=== PATIENT | male | born 1975 | race Caucasian/White ===

== ENCOUNTER 2019-12-09 20:42 | Inpatient (IN) | payer OTHER ==
[~2019-12-09] VITALS: Ht 167.6 cm; Wt 93.0 kg
[2019-12-09 23:12] LABS: BASOPHILS % 0.7 % (0.0-2.0); EOSINOPHILS % 1.1 % (0.0-5.0); HEMATOCRIT. 44.3 % (42.0-52.0); HEMOGLOBIN. 14.8 g/dL (14.0-18.0); LYMPHOCYTES % 31.3 % (20.0-50.0); MEAN CORPUSCULAR HEMOGLOBIN 29.5 pg (28.0-32.0); MEAN PLATELET VOLUME 8.1 fl (7.4-10.4); MONOCYTES % 5.9 % (2.0-8.0); PLATELET 256 x1000/uL (130-400); RED BLOOD CELL COUNT 5.03 mill/uL (4.7-6.1); RED CELL DISTRIBUTION WIDTH 14.4 % (11.6-14.6)
[2019-12-09] MEDS ORDERED: ASPIRIN 81MG TABLET PO ONE (23:15)
[2019-12-09 23:20] LABS: CHLORIDE 109 mEq/L (98-107)
[2019-12-10] MEDS ORDERED: MAGNESIUM/ALUMINUM HYDROXIDE/SIMETHICONE 30ML UDC PO PRN (07:00)
[2019-12-10] MEDS ORDERED: DIPHENHYDRAMINE 50MG/ML VIAL IV PRN (07:00)
[2019-12-10] MEDS ORDERED: GUAIFENESIN 200MG/10ML SUGAR FREE UDC PO PRN (07:00)
[2019-12-10] MEDS ORDERED: LORAZEPAM 2MG/ML CPJ IV PRN (07:00)
[2019-12-10] MEDS ORDERED: ACETAMINOPHEN 325MG TABLET PO PRN (07:00)
[2019-12-10] MEDS ORDERED: MORPHINE SULFATE 2 MG/ML CPJ (NOT FOR IM USE) IV PRN (07:00)
[2019-12-10] MEDS ORDERED: DOCUSATE SODIUM 100MG CAPSULE PO PRN (07:00)
[2019-12-10] MEDS ORDERED: CLONIDINE 0.1MG TABLET PO PRN (07:00)
[2019-12-10] MEDS ORDERED: ONDANSETRON HCL 4MG/2ML INJ IV PRN (07:00)
[2019-12-10] MEDS ORDERED: HYDROCODONE/ACETAMINOPHEN 10/325MG TABLET PO PRN (07:00)
[2019-12-10] MEDS ORDERED: HYDRALAZINE 20MG/ML VIAL IV PRN (07:00)
[2019-12-10] MEDS: ASPIRIN 81MG EC TABLET PO SCH (08:10)
[2019-12-10] MEDS: ENOXAPARIN 30MG/0.3ML SYR SUBCUT SCH ×2 (08:10→22:05)
[2019-12-10 10:46] LABS: T4 FREE 0.93 ng/dL (0.76-1.46)
[2019-12-10] MEDS: SODIUM CHLORIDE 0.9% INJ 3ML FLUSH IVF SCH ×2 (14:25→22:40)
[2019-12-10 19:29] LABS: CREATINE KINASE 83 IU/L (39-308)
[2019-12-10 19:30] LABS: CREATINE KINASE MB FRACTION < 1.0 ng/mL (0.5-3.6)
[2019-12-11] VITALS: BP 148/81
[2019-12-11 00:04] LABS: CREATINE KINASE 78 IU/L (39-308); CREATINE KINASE MB FRACTION < 1.0 ng/mL (0.5-3.6)
[2019-12-11] MEDS ORDERED: ARIP15TA2 PO (00:43)
[2019-12-11 04:00] VITALS: BP 150/72
[2019-12-11 07:13] LABS: BASOPHILS % 0.7 % (0.0-2.0); EOSINOPHILS % 1.6 % (0.0-5.0); HEMATOCRIT. 44.3 % (42.0-52.0); HEMOGLOBIN. 14.9 g/dL (14.0-18.0); LYMPHOCYTES % 31.8 % (20.0-50.0); MEAN CORPUSCULAR HEMOGLOBIN 29.4 pg (28.0-32.0); MEAN CORPUSCULAR VOLUME 87.1 fL (80.0-94.0); MEAN PLATELET VOLUME 8.3 fl (7.4-10.4); MONOCYTES % 5.6 % (2.0-8.0); NEUTROPHILS % 60.3 % (40.0-76.0); PLATELET 247 x1000/uL (130-400); RED BLOOD CELL COUNT 5.09 mill/uL (4.7-6.1); RED CELL DISTRIBUTION WIDTH 13.9 % (11.6-14.6)
[2019-12-11 07:19] LABS: CHLORIDE 107 mEq/L (98-107)
[2019-12-11 07:42] LABS: CREATINE KINASE 79 IU/L (39-308)
[2019-12-11 07:44] LABS: CREATINE KINASE MB FRACTION < 1.0 ng/mL (0.5-3.6)
[2019-12-11 08:04] VITALS: BP 126/82
[2019-12-11] MEDS: ARIPIPRAZOLE 5MG TABLET PO SCH (08:57)
[2019-12-11] MEDS: ENOXAPARIN 30MG/0.3ML SYR SUBCUT SCH ×2 (08:57→21:54)
[2019-12-11] MEDS: ASPIRIN 81MG EC TABLET PO SCH (08:57)
[2019-12-11 12:33] VITALS: BP 123/78
[2019-12-11 16:34] VITALS: BP 111/67
[2019-12-11 20:32] VITALS: BP 128/76
[2019-12-11] MEDS: SODIUM CHLORIDE 0.9% INJ 3ML FLUSH IVF SCH (21:52)
[2019-12-12] VITALS: BP 116/62
[2019-12-12 04:00] VITALS: BP 120/65
[2019-12-12] MEDS: SODIUM CHLORIDE 0.9% INJ 3ML FLUSH IVF SCH (05:53)
[2019-12-12 08:00] VITALS: BP 114/72
[2019-12-12] MEDS: ASPIRIN 81MG EC TABLET PO SCH (08:42)
[2019-12-12] MEDS: ARIPIPRAZOLE 5MG TABLET PO SCH (08:43)
[2019-12-12] MEDS: ENOXAPARIN 30MG/0.3ML SYR SUBCUT SCH (08:43)
[2019-12-12 12:00] VITALS: BP 117/77
[2019-12-12 12:45] VITALS: BP 117/77
== END 2019-12-12 14:00 | disposition home or self-care (01) | DRG 133 ==
LOC: ER 20:42 → ENRESERV 12-10 20:58 → 6WST 12-10 23:45
PROVIDERS: ADMIT Internal Medicine; ATTEND Internal Medicine
DX: J96.00 Acute respiratory failure, unspecified whether with hypoxia or hypercapnia (principal); F20.9 Schizophrenia, unspecified; E78.5 Hyperlipidemia, unspecified; G47.00 Insomnia, unspecified; Z20.828 Contact with and (suspected) exposure to other viral communicable diseases; Z59.0 Homelessness; Z79.899 Other long term (current) drug therapy
CPT/HCPCS: 36415; 71045; 80053; 80061; 82550; 82553; 83036; 83880; 84439; 84443; 84484; 85025; 85379; 93005; 93306; 99285; J1650; C9803-CS; U0003-CS